=== PATIENT | female | born 1955 | race Caucasian/White ===

== ENCOUNTER 2017-02-07 07:26 | Day surgery (SDC) | payer OTHER ==
[~2017-02-07] VITALS: Ht 147.3 cm; Wt 59.6 kg
[2017-02-07] MEDS ORDERED: LOSARTAN PO (08:12)
[2017-02-07] MEDS ORDERED: METFORMIN PO (08:12)
[2017-02-07] MEDS ORDERED: ASPI-664 PO (08:12)
[2017-02-07] MEDS ORDERED: ATORVASTATIN PO (08:12)
[2017-02-07 08:23] VITALS: Ht 147.3 cm; Wt 59.6 kg
[2017-02-07 08:32] VITALS: BP 153/69; PULSE 75; RESP 18
--- NOTE | 2017-02-07 09:46 | OPPN ---
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
[2017-02-07] MEDS ORDERED: MIDAZOLAM 1 MG/ML 2 ML INJ ONE ×3 (09:54)
[2017-02-07] MEDS ORDERED: FENTAnyl 50 MCG/ML VIAL ONE (09:54)
[2017-02-07 10:03] VITALS: BP 159/78; RESP 14
--- NOTE | 2017-02-08 04:43 | GILP ---
DATE OF PROCEDURE: NAME OF PROCEDURE: 1. Esophagogastroduodenoscopy and biopsy. 2. Colonoscopy and biopsy. SURGEON: Lionel Hernandez MD PREOPERATIVE DIAGNOSES: 1. Abdominal pain. 2. Screening colonoscopy. POSTOPERATIVE DIAGNOSES 1. Gastritis with erosions. 2. Gastric mucosal biopsies were taken for Helicobacter pylori test. 3. Colonoscopy all the way to the cecum. 4. Mild diverticulosis of the colon. 5. Two small sigmoid colon polyps were removed using biopsy forceps. 6. Internal hemorrhoids. INDICATION FOR THE PROCEDURE: Ms. Magnolia Horner is a 61-year-old female patient who had upper abdomin al pain not responding to therapy. Patient also needed screening colonoscopy. The procedures and possible complications were well explained to the patient. The patient understoo d and consented to the procedures. DESCRIPTION OF PROCEDURE: Under the influence of fentanyl and Versed, the gastroscope was carefully introduced into the esophagus and under direct vision, it was advanced to the stomach and through t he pylorus, into duodenal bulb and descending duodenum. FINDINGS: ESOPHAGUS: Mucosa was normal. STOMACH: The patient has gastritis with erosions. Gastric mucosal biopsies were taken for H. pylor i test. DUODENUM: Normal. The colonoscope was carefully introduced in the rectum and under direct vision, it was advanced all the way to the cecum. FINDINGS: The patient had 2 small sigmoid colon polyps and they were removed using biopsy forceps. She has mild diverticulosis of the colon and internal hemorrhoids. She tolerated the procedures very well and there was no complication from the procedures. At the en d of the procedures, she was awake with stable vital signs and she was discharged home to the care o f her family. IMPRESSION: Please see postoperative diagnoses. PLAN: 1. Omeprazole 40 mg p.o. q.a.m. 2. Await histopathology reports. 3. Next screening colonoscopy in 10 years. Dictated By: LIONEL FAJARDO/VICTORIA Conf#: [id number] DID#: [id number]
== END 2017-02-07 17:50 | disposition home or self-care (01) ==
LOC: GIL 07:26
PROVIDERS: ATTEND Internal Medicine Gastroenterology
DX: Z12.11 Encounter for screening for malignant neoplasm of colon (principal); K63.5 Polyp of colon; K29.70 Gastritis, unspecified, without bleeding; K64.8 Other hemorrhoids; K57.30 Diverticulosis of large intestine without perforation or abscess without bleeding; I10 Essential (primary) hypertension; E11.9 Type 2 diabetes mellitus without complications; E78.5 Hyperlipidemia, unspecified
CPT/HCPCS: 43239; 45380; 82962; 87081; J2250; J3010; Z7610